=== PATIENT | male | born 1985 | race Hispanic/Latino ===

== ENCOUNTER 2018-11-24 11:24 | Emergency (ER) | payer SELFPAY ==
[2018-11-24 12:35] LABS: #Basophils 0.1 thou/uL (0.0-0.2); #Eosinphils 0.1 thou/uL (0.0-0.7); #Lymphocytes 1.7 thou/uL (1.20-3.40); #Monocytes 0.7 thou/uL (0.11-0.59); #Neutrophils 5.1 thou/uL (1.40-6.50); %Basophils 1.2 % (0.0-1.0); %Eosinophils 0.9 % (0.0-10.0); %Lymphocytes 22.3 % (21.0-51.0); %Monocytes 8.7 % (0.0-10.0); Hemoglobin 16.1 g/dL (14.0-18.0); Mean Corpuscular HGB CONC 33.6 g/dL (32.0-36.0); Mean Corpuscular Hemoglobin 32.4 pg (27.0-31.0); Mean Corpuscular Volume 96.6 fL (78.0-98.0); Mean Platelet Volume 9.3 fL (7.4-10.4); Platelet Count 257 thou/uL (130-400); RBC Distribution Width 13.3 % (11.5-14.5); Red Blood Cell (RBC) Count 4.97 mill/uL (4.70-6.10); White Blood Cell (WBC) Count 7.6 thou/uL (4.8-10.8)
[2018-11-24 12:41] LABS: Anion Gap 12 mmol/L (10-20); BUN (Urea Nitrogen) 9 mg/dL (8.9-20.6); Calc. Creatinine Clearance 0 mL/min (70-130); Calcium 9.9 mg/dL (7.8-10.44); Carbon Dioxide 26 mmol/L (22-29); Chloride 104 mmol/L (98-107); Estimated GFR-MDRD 85; Glucose 106 mg/dL (70-105); Potassium 3.3 mmol/L (3.5-5.1); Sodium 139 mmol/L (136-145)
== END 2018-11-24 14:32 | disposition left against medical advice (07) ==
LOC: ERS 11:24
DX: Z53.21 Procedure and treatment not carried out due to patient leaving prior to being seen by health care provider (principal)
CPT/HCPCS: 36415; 80048; 85025

== ENCOUNTER 2018-11-24 23:51 | Emergency (ER) | payer SELFPAY ==
[2018-11-25 00:23] LABS: Bilirubin Small (Negative); Blood, Urine Negative (Negative); Clarity Slightly Cloudy (Clear); Glucose, Urine (Dipstick) Negative (Negative); Leukocyte Negative (Negative); Nitrite Negative (Negative); Protein, Urine (Dipstick) 100 mg/dL (Neg-Trace)
[2018-11-25 00:32] LABS: Bacteria/HPF Rare-Few HPF (None Seen); Mucous/LPF 3+ LPF (<2+); RBC/HPF None Seen HPF (0-3); Squamous Epithelial 0-3 HPF (0-3); WBC/HPF 0-3 HPF (0-3)
[2018-11-25] MEDS ORDERED: cefTRIAXone\\ROCEPHIN 250 MG VIAL ONE (00:38)
[2018-11-25] MEDS ORDERED: Azithromycin 250 MG TAB ONE (00:38)
[2018-11-25] MEDS ORDERED: Lidocaine 1% PF 5 ML VIAL ONE (00:38)
[2018-11-26 22:37] LABS: Chlam.trachomatis by PCR,Urine Not Detected (NotDetected)
== END 2018-11-25 01:05 | disposition home or self-care (01) ==
LOC: SCSER 23:51
DX: Z20.2 Contact with and (suspected) exposure to infections with a predominantly sexual mode of transmission (principal); F17.210 Nicotine dependence, cigarettes, uncomplicated
CPT/HCPCS: 81003; 81015; 87491; 87591; 96372; 99283; J0696; J2001

== ENCOUNTER 2020-03-30 12:03 | Emergency (ER) | payer SELFPAY ==
[2020-03-30] MEDS ORDERED: Azithromycin 250 MG TAB ONE (12:38)
[2020-03-30] MEDS ORDERED: cefTRIAXone\\ROCEPHIN 250 MG VIAL ONE (12:38)
[2020-03-30] MEDS ORDERED: Lidocaine 1% PF 5 ML VIAL ONE (12:38)
[2020-03-31 19:24] LABS: Chlam.trachomatis by PCR,Urine Not Detected (NotDetected)
== END 2020-03-30 12:55 | disposition home or self-care (01) ==
LOC: ERS 12:03
DX: R05 Cough (principal); R50.9 Fever, unspecified; Z20.828 Contact with and (suspected) exposure to other viral communicable diseases; Z20.2 Contact with and (suspected) exposure to infections with a predominantly sexual mode of transmission
CPT/HCPCS: 87491; 87591; 99283; J0696

== ENCOUNTER 2020-08-26 22:05 | Emergency (ER) | payer SELFPAY ==
[2020-08-26] MEDS ORDERED: Acetaminophen 500 MG TAB ONE (23:12)
[2020-08-27 10:55] LABS: SARS-CoV-2 PCR by NAA Not Detected (NotDetected)
== END 2020-08-26 23:24 | disposition home or self-care (01) ==
LOC: ERS 22:05
DX: J20.9 Acute bronchitis, unspecified (principal); Z20.822 Contact with and (suspected) exposure to COVID-19; F17.210 Nicotine dependence, cigarettes, uncomplicated
CPT/HCPCS: 71045; 87635; U0003; U0005